=== PATIENT | male | born 1985 | race Caucasian/White ===

== ENCOUNTER → 2023-11-23 | Outpatient (CLI) | payer OTHER ==
--- NOTE | 2023-11-28 18:38 | MR ---
EXAM: MR wrist RT wo con DATE OF EXAM: 11/23/2023 COMPARISON: None HISTORY: Rt Wrist pain, popping sound in joint when flexed TECHNIQUE: Multiplanar, multisequence images of the right wrist were acquired without contrast. FINDINGS: BONES/JOINTS: Normal bone marrow signal. Normal alignment. Slight negative ulnar variance. Distal rad ioulnar joint is normal. No joint effusion. LIGAMENTS: Scapholunate and lunotriquetral ligaments are normal. Extrinsic carpal ligaments are aniceto l. Triangular fibrocartilaginous complex is normal. TENDONS: Flexor tendons are normal. Small amount of fluid within the second extensor compartment at t he level of the carpal bones. Small amount of fluid within the third extensor compartment at the inte rsection with the second extensor compartment SOFT TISSUES: Carpal tunnel is normal. Guyon's canal is normal. No bursal distention. Ganglion cyst f rom the volar aspect of the ulnocarpal joint, measures 4 x 6 x 6 mm.. NEUROVASCULAR: The median nerve is normal in size, signal, and location. The ulnar nerve is normal in size, signal, and location. Vascular structures are normal OTHER: Normal. IMPRESSION: 1. Second extensor compartment tenosynovitis. 2. Distal intersection syndrome. 3. Tiny ganglion cyst volar ulnocarpal joint. 4. Slight negative ulnar variance. Lunate is normal.
== END | disposition home or self-care (01) ==
LOC: RADMRIMAIN 18:11
PROVIDERS: ATTEND Orthopaedic Surgery Hand Surgery
DX: M67.431 Ganglion, right wrist (principal); M65.831 Other synovitis and tenosynovitis, right forearm; M25.531 Pain in right wrist